=== PATIENT | male | born 1980 | race Caucasian/White ===

== ENCOUNTER 2023-07-11 13:13 | Emergency (ER) | payer OTHER, MEDICARE, SELFPAY ==
[2023-07-11 13:31] VITALS: BP 130/113
[2023-07-11 13:41] LABS: % Basophils 0.8 % (0-2); % Eosinophils 2.1 % (0-6); % Immature Granulocytes 0.5 % (0-0.5); % Lymphocytes 28.9 % (20.5-51.1); % Monocytes 8.2 % (1.7-9.3); % Neutrophils 59.5 % (42.2-75.2); Absolute Basophils 0.1 10^3/uL (0-0.2); Absolute Eosinophils 0.2 10^3/uL (0-0.7); Absolute Lymphocytes 2.2 10^3/uL (1.2-3.4); Absolute Monocytes 0.6 10^3/uL (0.1-0.6); Absolute Neutrophils 4.4 10^3/uL (1.4-6.5); Hematocrit 44.1 % (39.0-52.0); Hemoglobin 15.4 g/dL (13.0-18.0); Mean Corp Hgb Conc. 34.9 g/dL (33.0-37.0); Mean Corpuscular Volume 88.9 fL (80.0-94.0); Nucleated Red Blood Cells % 0 % (-); Platelet Count 235 10^3/uL (130-400); Red Blood Cell Count 4.96 10^6/uL (4.70-6.10); Red Cell Dist. Width 12.6 % (11.5-14.5); White Blood Cell Count 7.5 10^3/uL (4.8-10.8)
[2023-07-11 14:00] LABS: ALT (SGPT) 40 U/L (0-50); AST (SGOT) 33 U/L (17-59); Albumin 4.5 g/dl (3.5-5.0); Alkaline Phosphatase 112 U/L (38-126); Blood Urea Nitrogen 12 mg/dl (9-20); Calcium 9.6 mg/dl (8.4-10.2); Carbon Dioxide 24 mmol/L (22-30); Chloride 106 mmol/L (98-107); Glucose 117 mg/dl (70-99); Potassium 4.2 mmol/L (3.5-5.1); Sodium 141 mmol/L (135-145); Total Bilirubin 0.7 mg/dl (0.2-1.3); Total Protein 7.5 g/dl (6.3-8.2); eGFR > 60.00
--- NOTE | 2023-07-11 14:39 | ED.GENMED ---
History of Present Illness
General
Chief Complaint: Breathing Problem
Time Seen by Provider: 07/11/23 14:21
Travel History
Have you had any contact with someone who has COVID-19?: No
Do you have any symptoms of coronavirus? Fever > 100 degrees, chills, cough, shortness of breath, sore throat, loss of taste or smell, muscle aches, or headache?: No
History of Present Illness
History of Present Illness:
43-year-old male presents the emergency department for evaluation of low pulse ox. He states he has no symptoms but noticed that his pulse ox on a portable pulse oximeter was briefly in the low 90s before improving to 99%. Specifically denies any
chest pain or shortness of breath. When questioned why he put the pulse ox on his finger his significant other informs me that he does this every day for extended periods of time. Patient does admit to significant health-related anxiety. No
recent fevers.
Past History
Past History
ED Past Medical History: Psychiatric (Anxiety); Negative Asthma, HTN, Hypercholesterolemia or NIDDM
ED Past Surgical History: Other ([place] teeth)
Social History
Tobacco: Former smoker
Alcohol: None
Drug: None
Personal:
Living: with family
Employment: Employed
Family History
Family History: Other (Noncontributory)
Review of Systems
Review of Systems
Allergies reviewed?: Yes
All Other Systems: ROS reviewed and negative except as documented in HPI and ROS
Phy Exam
Physical Exam
Physical Exam:
GEN: Well appearing, NAD, WDWN
HEENT: Oral mucosa moist, no scleral icterus
Cardiac: Regular rate and rhythm, no murmur
Lung: No respiratory distress, no tachypnea, lungs clear to auscultation bilaterally
MSK: No gross deformity or injuries
Skin: Good color, no pallor or jaundice, no rashes
Neuro: AO x3, moves all extremities freely
Psych: Calm, cooperative
Course
Orders/Labs/Results
Orders:
Orders
07/11/23 13:36
CMP [Comprehensive Metabolic Panel] Urgent
Complete Blood Count/With Diff Urgent
Abnormal Lab Results
07/11/23
13:36
Glucose 117 H mg/dl
(70-99)
07/11/23 13:36
07/11/23 13:36
Vital Signs
Initial and Last Documented VS:
Initial Vital Signs
Temp Pulse Resp BP Pulse Ox
98.0 F 70 18 130/113 98
07/11/23 13:31 07/11/23 13:31 07/11/23 13:31 07/11/23 13:31 07/11/23 13:31
Last Documented Vital Signs
Temp Pulse Resp BP Pulse Ox
98.0 F 77 18 130/113 97
07/11/23 13:31 07/11/23 14:25 07/11/23 14:25 07/11/23 13:31 07/11/23 14:25
MDM/Problems Addressed
MDM/Problems Addressed:
Patient strongly encouraged to discontinue to Pulsoxymeter in the absence of any symptoms.
*Critical Care Note
Total Time (30-74mins, 75-104mins- exclusive of procedures): Not Applicable
ED Attending Note
-
Portions of this chart may have been created with voice recognition software.� Occasional wrong word or��sound alike� substitutions may have occurred due to the inherent limitations of voice recognition software.
Discharge Plan
Departure
Patient Disposition: Home (Routine Discharge)
Date of Disposition: 07/11/23
Time of Disposition: 14:39
Patient with high blood pressure during this ER visit?: Yes
Discharge Problem:
Anxiety about health
Prescriptions:
No Action
citalopram 20 MG tablet
20 mg PO HS
clozapine 100 MG tablet
150 mg PO HS
clomipramine 25 MG capsule
25 mg PO HS
mupirocin calcium 15 GM cream
15 gm TP TID Qty: 15 0RF
valacyclovir 1,000 MG tablet
1,000 mg PO TID Qty: 21 0RF
prednisone 20 MG tablet
80 mg PO DAILY Qty: 28 0RF
doxycycline hyclate 100 MG capsule
100 mg PO Q12 Qty: 42 0RF
Activity Restrictions/Additional Instructions:
DO NOT USE A PULSE OXIMETER IF YOU HAVE NO SYMPTOMS OF SHORTNESS OF BREATH, HEART PALPITATIONS OR CHEST PAIN
Interventions
Interventions:
*Risk Screen - Suicide Last Done: 07/11/23 14:26
*General Assessment Last Done: 07/11/23 13:26
*Neglect/Abuse Screening Last Done: 07/11/23 14:26
ED- Fall Risk Assessment Last Done: 07/11/23 14:49
*ED COVID-19 Vaccine History Last Done: 07/11/23 13:26
*Nursing Disposition Last Done: 07/11/23 14:49
ED- Cardiac Assessment Last Done: 07/11/23 14:25
ED- Pulmonary Assessment Last Done: 07/11/23 14:25
Discharge Date and Time
Discharge Date/Time: 07/11/23 14:50
== END 2023-07-11 14:50 | disposition home or self-care (01) ==
LOC: EMR 13:13
PROVIDERS: Emergency Medicine; EMERGENCY PHYSICIAN Emergency Medicine; FAMILY PHYSICIAN Family Medicine
DX: F41.9 Anxiety disorder, unspecified (principal); R03.0 Elevated blood-pressure reading, without diagnosis of hypertension; Z87.891 Personal history of nicotine dependence
CPT/HCPCS: 99283; 80053; 85025

== ENCOUNTER 2023-10-08 16:36 | Emergency (ER) | payer OTHER, MEDICARE, SELFPAY ==
[2023-10-08 16:38] VITALS: BP 136/82
--- NOTE | 2023-10-08 18:07 | ED.GENMED ---
History of Present Illness
General
Chief Complaint: Abnormal Lab Value
Source: patient
Time Seen by Provider: 10/08/23 17:54
Travel History
Have you had any contact with someone who has COVID-19?: No
Do you have any symptoms of coronavirus? Fever > 100 degrees, chills, cough, shortness of breath, sore throat, loss of taste or smell, muscle aches, or headache?: No
History of Present Illness
History of Present Illness:
43-year-old male with past medical history of fatty liver disease, anxiety, bipolar disorder, OCD, schizoaffective disorder presenting to the emergency department for evaluation after he had outpatient labs through his GI which were noted to have
mildly low alpha-2 macro globulins. Patient was concerned about this result and wanted to make sure everything was okay. Patient notes that he is no symptoms at this time including no abdominal pain, nausea, vomiting, bowel changes, urinary
symptoms or change in oral intake.
Past History
Past History
ED Past Medical History: Psychiatric (Anxiety); Negative Asthma, HTN, Hypercholesterolemia or NIDDM
ED Past Surgical History: Other ([place] teeth)
Social History
Tobacco: Former smoker
Alcohol: None
Drug: None
Personal:
Living: with family
Employment: Employed
Family History
Family History: Other (Noncontributory)
Review of Systems
Review of Systems
All Other Systems: ROS reviewed and negative except as documented in HPI and ROS
Phy Exam
Physical Exam
Physical Exam:
GENERAL: Alert , in no apparent distress
EYE: conjunctiva clear
Head: Normocephalic atraumatic
NECK: Supple,
ENT: mmm.
LUNGS: no acute respiratory distress
NEUROLOGICAL: Alert and oriented
SKIN: Warm and dry, skin intact.
MUSCULOSKELETAL: well perfused.
PSYCH: Normal and appropriate interaction.
Course
Vital Signs
Initial and Last Documented VS:
Initial Vital Signs
Temp Pulse Resp BP Pulse Ox
98.0 F 66 20 136/82 99
10/08/23 16:38 10/08/23 16:38 10/08/23 16:38 10/08/23 16:38 10/08/23 16:38
Last Documented Vital Signs
Temp Pulse Resp BP Pulse Ox
98.0 F 72 18 134/78 97
10/08/23 16:38 10/08/23 18:20 10/08/23 18:20 10/08/23 18:20 10/08/23 18:20
MDM/Problems Addressed
MDM/Problems Addressed:
43-year-old male present emergency department for evaluation of slightly abnormal lab work that was done as an outpatient by his GI physician. His alpha-2 macro globulins were slightly low on the normal range. I expressed to the patient that this
is a nonemergent and that he needs to follow-up with his GI physician to discuss these results. Overall patient is asymptomatic and does not require any further emergency room care and to be safe at home.
*Pulse Oximetry
Patient hypoxic: no
*Critical Care Note
Total Time (30-74mins, 75-104mins- exclusive of procedures): Not Applicable
ED Attending Note
-
Portions of this chart may have been created with voice recognition software.� Occasional wrong word or��sound alike� substitutions may have occurred due to the inherent limitations of voice recognition software.
Discharge Plan
Departure
Patient Disposition: Home (Routine Discharge)
Date of Disposition: 10/08/23
Time of Disposition: 18:07
Patient with high blood pressure during this ER visit?: No
Discharge Problem:
Fatty liver
Prescriptions:
No Action
citalopram 20 MG tablet
20 mg PO HS
clozapine 100 MG tablet
150 mg PO HS
clomipramine 25 MG capsule
25 mg PO HS
mupirocin calcium 15 GM cream
15 gm TP TID Qty: 15 0RF
valacyclovir 1,000 MG tablet
1,000 mg PO TID Qty: 21 0RF
prednisone 20 MG tablet
80 mg PO DAILY Qty: 28 0RF
doxycycline hyclate 100 MG capsule
100 mg PO Q12 Qty: 42 0RF
Interventions
Interventions:
*Risk Screen - Suicide Last Done: 10/08/23 18:09
*General Assessment Last Done: 10/08/23 18:09
*Neglect/Abuse Screening Last Done: 10/08/23 18:09
ED- Fall Risk Assessment Last Done: 10/08/23 18:09
*ED COVID-19 Vaccine History Last Done: 10/08/23 18:09
*Nursing Disposition Last Done: 10/08/23 18:20
Discharge Date and Time
Discharge Date/Time: 10/08/23 18:20
Print Language: WOLOF
--- NOTE | 2023-10-08 18:15 | EDRN ---
Reviewed discharge instructions with patient. Verbalized understanding.
[2023-10-08 18:20] VITALS: BP 134/78
== END 2023-10-08 18:20 | disposition home or self-care (01) ==
LOC: EMR 16:36
PROVIDERS: EMERGENCY PHYSICIAN Emergency Medicine; FAMILY PHYSICIAN Family Medicine
DX: R79.89 Other specified abnormal findings of blood chemistry (principal); K76.0 Fatty (change of) liver, not elsewhere classified; F31.9 Bipolar disorder, unspecified; F42.9 Obsessive-compulsive disorder, unspecified; F25.9 Schizoaffective disorder, unspecified; F41.9 Anxiety disorder, unspecified; Z87.891 Personal history of nicotine dependence
CPT/HCPCS: 99282

== ENCOUNTER 2023-12-01 17:26 | Emergency (ER) | payer OTHER, MEDICARE, SELFPAY ==
[2023-12-01 17:27] VITALS: BMI 34.3
[2023-12-01 17:31] VITALS: BP 149/82
[2023-12-01 18:01] VITALS: BP 124/83
--- NOTE | 2023-12-01 18:15 | ED.GENMED ---
History of Present Illness
General
Chief Complaint: Heart Rate Problem
Source: patient
Exam Limitations: none
Time Seen by Provider: 12/01/23 17:59
Travel History
Have you had any contact with someone who has COVID-19?: No
Do you have any symptoms of coronavirus? Fever > 100 degrees, chills, cough, shortness of breath, sore throat, loss of taste or smell, muscle aches, or headache?: No
History of Present Illness
History of Present Illness:
This is a 43 year old male that comes in because his apple watch said his heart rate was 46 around 12 noon. States that he felt fine and was not dizzy or nauseate and he didn't even know this until he was reviewing his watch. Denies any fever,
chills, chest pain, SOB, abd pain, nausea, vomiting, diarrhea, headache, dizziness, urinary burning.
Past History
Past History
ED Past Medical History: Psychiatric (Anxiety, Bipolar OCD, Schizo affective ) and Other (Migraines, Lyme, Duke's Palsy, Fatty liver); Negative Asthma, HTN, Hypercholesterolemia or NIDDM
ED Past Surgical History: Other ([place] teeth)
Social History
Tobacco: Former smoker
Alcohol: None
Drug: None
Personal:
Living: with family
Employment: Employed
Family History
Family History: Other (Noncontributory)
Review of Systems
Review of Systems
All Other Systems: ROS reviewed and negative except as documented in HPI and ROS
Constitutional: Reports no symptoms; Denies fever or chills
EENT: Reports no symptoms
Respiratory: Reports no symptoms; Denies cough or trouble breathing
Cardiac: Reports other (Lower heart rate); Denies chest pain
ABD/GI: Reports no symptoms; Denies abdominal pain, nausea, vomiting or diarrhea
: Reports no symptoms; Denies dysuria, frequency or urgency
Musculoskeletal: Reports no symptoms
Skin: Reports no symptoms
Neurological: Reports no symptoms; Denies dizzy or headache
Psychiatric: Reports no symptoms
Phy Exam
General Physical Exam
General Presentation: well appearing and no apparent distress
General age: appears stated age
General Skin: warm and dry
General Habitus: normal
General Mental: alert
General Hydration: appears well hydrated
ENT Exam
ENT Exam: TM's normal, pharynx normal and neck supple
Eye Exam
Eye Exam: EOMI
Cardiovascular Exam
Cardiovascular Exam: regular rate/rhythm, no edema, no murmur and normal peripheral pulses
Pulmonary Exam
Pulmonary Exam: lungs clear, no respiratory distress, no rales, chest non tender, no crackles, no rhonchi, no wheezing and no cough
Gastrointestinal Exam
Gastrointestinal Exam: normal bowel sounds, non tender, soft, no organomegaly, no pulsatile mass and non distended
Musculoskeletal Exam
Musculoskeletal Exam: full ROM and no edema
Skin Exam
Skin Exam: normal color, warm/dry, no rash and no petechia
Psychiatric Exam
Psychiatric Exam: normal mood/affect
Course
Orders/Labs/Results
Orders:
Orders
12/01/23 18:24
Electrocardiogram (*1) Urgent
Reason for Study: Bradycardia / Tachycardia
EKG- Treatment ONCE
Vital Signs
Initial and Last Documented VS:
Initial Vital Signs
Temp Pulse Resp BP Pulse Ox
98.0 F 94 16 149/82 98
12/01/23 17:31 12/01/23 17:31 12/01/23 17:31 12/01/23 17:31 12/01/23 17:31
Last Documented Vital Signs
Temp Pulse Resp BP Pulse Ox
98.0 F 91 12 124/83 99
12/01/23 17:31 12/01/23 18:01 12/01/23 18:01 12/01/23 18:01 12/01/23 18:10
MDM/Problems Addressed
Differential Diagnosis Includes:
watch unable to strip picker heart rate
MDM/Problems Addressed:
This is a 43 year old male that comes in stating that his apple watch said at 12 noon his heart rate was 46. Patient state that he did not know this until he reviewed his watch. States that he was not dizzy or nauseated and had no chest pain.
EXplained to patient that his watch is just like are monitor sometimes there is not a good connection and they are inaccurate. Heart rate on the monitor is 88 NSR. Encouraged patient to increase his water intake and if he had any chest pain or feels
that his heart is abnormal and he is dizzy or nauseated to return to the ER. Patient to follow up with the PCP.
Chronic conditions affecting care:
NA
Acute Exacerbation and/or Progression of Chronic Illness:
NA
*Pulse Oximetry
Patient hypoxic: no
*EKG
Interpreted by ED Provider?: Yes
Heart Rate: 82
Rate: normal
Rhythm: sinus
[place]: normal axis
Interval: long QT
QRS Pattern: normal QRS
Ischemia: no ischemia
*[employer] Work[employer] Interpretation
Rate: normal
Heart Rate: 88
Rhythm: sinus
*Critical Care Note
Total Time (30-74mins, 75-104mins- exclusive of procedures): Not Applicable
ED Attending Note
-
Portions of this chart may have been created with voice recognition software.� Occasional wrong word or��sound alike� substitutions may have occurred due to the inherent limitations of voice recognition software.
Discharge Plan
Departure
Patient Disposition: Home (Routine Discharge)
Date of Disposition: 12/01/23
Time of Disposition: 18:25
Patient with high blood pressure during this ER visit?: No
Condition: Good
Covid-19: Not Applicable
Discharge Problem:
heart rate check
Instructions: How to Check Your Pulse
Prescriptions:
No Action
citalopram 20 MG tablet
20 mg PO HS
clozapine 100 MG tablet
150 mg PO HS
clomipramine 25 MG capsule
25 mg PO HS
mupirocin calcium 15 GM cream
15 gm TP TID Qty: 15 0RF
valacyclovir 1,000 MG tablet
1,000 mg PO TID Qty: 21 0RF
prednisone 20 MG tablet
80 mg PO DAILY Qty: 28 0RF
doxycycline hyclate 100 MG capsule
100 mg PO Q12 Qty: 42 0RF
Referrals:
Thang Cooper MD [Family Provider] - Call in 1-3 days for appt
Activity Restrictions/Additional Instructions:
As discussed, your watch may have been unable to strip picker your heart rate. Its just like our monitors, if they are not in place properly they will not have an accurate reading. Please increase your water intake to 8-8oz glasses daily. Follow up with
the family doctor for recheck. IF YOU HAVE DIZZINESS, CHEST PAIN, OR YOU HAVE ANY OTHER CONCERNS PLEASE RETURN TO THE EMERGENCY ROOM.
Interventions
Interventions:
*Risk Screen - Suicide Last Done: 12/01/23 17:31
*General Assessment Last Done: 12/01/23 17:31
*Neglect/Abuse Screening Last Done: 12/01/23 17:31
ED- Fall Risk Assessment Last Done: 12/01/23 18:10
*Nursing Disposition Last Done: 12/01/23 18:32
ED- Cardiac Assessment Last Done: 12/01/23 18:10
ED- Pulmonary Assessment Last Done: 12/01/23 18:10
Discharge Date and Time
Print Language: ETHIOPIAN
== END 2023-12-01 18:32 | disposition home or self-care (01) ==
LOC: EMR 17:26
PROVIDERS: EMERGENCY PHYSICIAN Emergency Medicine; FAMILY PHYSICIAN Family Medicine
DX: R00.9 Unspecified abnormalities of heart beat (principal); F31.9 Bipolar disorder, unspecified; F42.9 Obsessive-compulsive disorder, unspecified; F25.9 Schizoaffective disorder, unspecified; F41.9 Anxiety disorder, unspecified; G43.909 Migraine, unspecified, not intractable, without status migrainosus; K76.0 Fatty (change of) liver, not elsewhere classified; Z87.891 Personal history of nicotine dependence
CPT/HCPCS: 99283; 93005

== ENCOUNTER 2024-05-13 19:50 | Emergency (ER) | payer OTHER, MEDICARE, SELFPAY ==
[2024-05-13 19:52] VITALS: BP 142/85
--- NOTE | 2024-05-13 20:19 | ED.GENMED ---
History of Present Illness
General
Chief Complaint: Nasal Problem
Source: patient
Exam Limitations: none
Time Seen by Provider: 05/13/24 20:06
History of Present Illness
History of Present Illness:
This is a 43 year old male that comes in with c/o clear nasal drip. States that he sometimes gets sinusitis and he tonight he had some clear nasal discharge form his nose. States that he was googling and he was worried about spinal fluid. Patient
has not had any head trauma. Denies any fever, chills, chest pain, SOB, abd pain, nausea, vomiting, diarrhea, headache, dizziness, urinary burning.
Past History
Past History
ED Past Medical History: Psychiatric (Anxiety, Bipolar OCD, Schizo affective ) and Other (Migraines, Lyme, Duke's Palsy, Fatty liver); Negative Asthma, HTN, Hypercholesterolemia or NIDDM
ED Past Surgical History: Other ([place] teeth)
Social History
Tobacco: Former smoker
Alcohol: None
Drug: None
Personal:
Living: with family
Employment: Employed
Family History
Family History: Other (Noncontributory)
Review of Systems
Review of Systems
All Other Systems: ROS reviewed and negative except as documented in HPI and ROS
Constitutional: Reports no symptoms; Denies fever or chills
EENT: Reports other (Nasal discharge)
Respiratory: Reports no symptoms; Denies cough or trouble breathing
Cardiac: Reports no symptoms; Denies chest pain
ABD/GI: Reports no symptoms; Denies abdominal pain, nausea, vomiting or diarrhea
: Reports no symptoms; Denies dysuria, frequency or urgency
Musculoskeletal: Reports no symptoms
Skin: Reports no symptoms
Neurological: Reports no symptoms; Denies dizzy or headache
Psychiatric: Reports no symptoms
Phy Exam
General Physical Exam
General Presentation: well appearing and no apparent distress
General age: appears stated age
General Skin: warm and dry
General Habitus: normal
General Mental: alert
General Hydration: appears well hydrated
ENT Exam
ENT Exam: TM's normal, pharynx normal, neck supple and other (Erythema of the nasal passages. negative for any discharge)
Eye Exam
Eye Exam: EOMI
Cardiovascular Exam
Cardiovascular Exam: regular rate/rhythm
Pulmonary Exam
Pulmonary Exam: lungs clear, no respiratory distress, no rales, chest non tender, no crackles, no rhonchi, no wheezing and no cough
Musculoskeletal Exam
Musculoskeletal Exam: full ROM
Skin Exam
Skin Exam: normal color, warm/dry, no rash and no petechia
Psychiatric Exam
Psychiatric Exam: normal mood/affect
Course
Vital Signs
Initial and Last Documented VS:
Initial Vital Signs
Temp Pulse Resp BP
98.0 F 71 18 142/85
05/13/24 19:52 05/13/24 19:52 05/13/24 19:52 05/13/24 19:52
Last Documented Vital Signs
Temp Pulse Resp BP
98.0 F 71 18 142/85
05/13/24 19:52 05/13/24 19:52 05/13/24 19:52 05/13/24 19:52
MDM/Problems Addressed
Differential Diagnosis Includes:
seasonal allergies. Cold symptoms
MDM/Problems Addressed:
This is a 43 year old male that comes in with c/o nasal discharge.
Explained to patient that this is most likely seasonal allergies or you are starting with a cold. Explained that he has had no trauma to his head and he doesn't have a headache that would account for any spinal fluid. Patient to return with any
concerns.
Chronic conditions affecting care: Psychiatric illness
Acute Exacerbation and/or Progression of Chronic Illness: Psychiatric illness
*Pulse Oximetry
Patient hypoxic: no
*EKG
Interpreted by ED Provider?: NA
Rate: EKG- N/A
*Project Manager [employer] Interpretation
Rate: [employer]- N/A
*Critical Care Note
Total Time (30-74mins, 75-104mins- exclusive of procedures): Not Applicable
ED Attending Note
-
Portions of this chart may have been created with voice recognition software.� Occasional wrong word or��sound alike� substitutions may have occurred due to the inherent limitations of voice recognition software.
Discharge Plan
Departure
Patient Disposition: Home (Routine Discharge)
Date of Disposition: 05/13/24
Time of Disposition: 20:25
Patient with high blood pressure during this ER visit?: Yes
Condition: Good
Covid-19: Not Applicable
Discharge Problem:
Discharge from nose
Instructions: Cough, runny nose, and the common cold, BLOOD PRESSURE
Prescriptions:
No Action
citalopram 20 MG tablet
20 mg PO HS
clozapine 100 MG tablet
150 mg PO HS
clomipramine 25 MG capsule
25 mg PO HS
mupirocin calcium 15 GM cream
15 gm TP TID Qty: 15 0RF
valacyclovir 1,000 MG tablet
1,000 mg PO TID Qty: 21 0RF
prednisone 20 MG tablet
80 mg PO DAILY Qty: 28 0RF
doxycycline hyclate 100 MG capsule
100 mg PO Q12 Qty: 42 0RF
Activity Restrictions/Additional Instructions:
As discussed, this may just be the start of a cold or seasonal allergies. Please just blow your nose. Increase your water intake and follow up with the family doctor. IF YOU HAVE ANY OTHER CONCERNS PLEASE RETURN TO THE EMERGENCY ROOM.
Interventions
Interventions:
*Risk Screen - Suicide Last Done: 05/13/24 19:52
*General Assessment Last Done: 05/13/24 19:52
*Neglect/Abuse Screening Last Done: 05/13/24 19:52
*ED COVID-19 Vaccine History Last Done: 05/13/24 19:52
Discharge Date and Time
Print Language: HEBREW
[2024-05-13 20:41] VITALS: BP 156/72
== END 2024-05-13 20:42 | disposition home or self-care (01) ==
LOC: EMR 19:50
PROVIDERS: EMERGENCY PHYSICIAN Emergency Medicine; FAMILY PHYSICIAN Family Medicine
DX: R09.89 Other specified symptoms and signs involving the circulatory and respiratory systems (principal); F31.9 Bipolar disorder, unspecified; F41.9 Anxiety disorder, unspecified; F42.9 Obsessive-compulsive disorder, unspecified; F25.9 Schizoaffective disorder, unspecified; K76.0 Fatty (change of) liver, not elsewhere classified; Z87.891 Personal history of nicotine dependence; G43.909 Migraine, unspecified, not intractable, without status migrainosus
CPT/HCPCS: 99282

== ENCOUNTER 2024-08-25 15:23 | Emergency (ER) | payer MEDICARE, SELFPAY ==
[2024-08-25 15:37] VITALS: BP 118/79
[2024-08-25 16:07] LABS: % Basophils 1.1 % (0-2); % Eosinophils 1.6 % (0-6); % Immature Granulocytes 0.6 % (0-0.5); % Lymphocytes 34.7 % (20.5-51.1); % Monocytes 8.8 % (1.7-9.3); % Neutrophils 53.2 % (42.2-75.2); Absolute Basophils 0.1 10^3/uL (0-0.2); Absolute Eosinophils 0.1 10^3/uL (0-0.7); Absolute Immature Granulocytes 0.1 10^3/uL (0-0.05); Absolute Lymphocytes 2.9 10^3/uL (1.2-3.4); Absolute Monocytes 0.7 10^3/uL (0.1-0.6); Absolute Neutrophils 4.4 10^3/uL (1.4-6.5); Hematocrit 45.3 % (39.0-52.0); Hemoglobin 15.5 g/dL (13.0-18.0); Mean Corp Hgb Conc. 34.2 g/dL (33.0-37.0); Mean Corpuscular Hgb 30.9 pg (27.0-31.0); Mean Corpuscular Volume 90.2 fL (80.0-94.0); Mean Platelet Volume 9.3 fL (7.4-10.4); Nucleated Red Blood Cells % 0 % (-); Platelet Count 240 10^3/uL (130-400); Red Blood Cell Count 5.02 10^6/uL (4.70-6.10); Red Cell Dist. Width 12.6 % (11.5-14.5); White Blood Cell Count 8.3 10^3/uL (4.8-10.8)
[2024-08-25 16:25] LABS: ALT (SGPT) 55 U/L (0-50); AST (SGOT) 34 U/L (17-59); Albumin 5.3 g/dl (3.5-5.0); Alkaline Phosphatase 111 U/L (38-126); Blood Urea Nitrogen 12 mg/dl (9-20); Carbon Dioxide 19 mmol/L (22-30); Chloride 106 mmol/L (98-107); Glucose 105 mg/dl (70-99); Potassium 4.6 mmol/L (3.5-5.1); Sodium 139 mmol/L (135-145); Total Bilirubin 0.9 mg/dl (0.2-1.3); Total Protein 8.2 g/dl (6.3-8.2); eGFR > 60.00
[2024-08-25 18:49] LABS: Lipase 214 U/L (23-300)
--- NOTE | 2024-08-25 18:50 | ED.GENMED ---
History of Present Illness
General
Chief Complaint: Bowel Problem
Source: patient
Exam Limitations: none
Time Seen by Provider: 08/25/24 18:07
Nursing documentation reviewed up to this point in time: agreed with
History of Present Illness
History of Present Illness:
44-year-old male past medical history of fatty liver presenting to the emergency department today with concerns of a light brown stool appearance over the past few days denies any pain fevers or any additional symptoms otherwise. He claims that
does happen occasionally. Has been drinking more coffee than usual.
Past History
Past History
ED Past Medical History: Psychiatric (Anxiety, Bipolar OCD, Schizo affective ) and Other (Migraines, Lyme, Duke's Palsy, Fatty liver); Negative Asthma, HTN, Hypercholesterolemia or NIDDM
ED Past Surgical History: Other ([place] teeth)
Social History
Tobacco: Former smoker
Alcohol: None
Drug: None
Personal:
Living: with family
Employment: Employed
Family History
Family History: Other (Noncontributory)
Review of Systems
Review of Systems
Allergies reviewed?: Yes
All Other Systems: ROS reviewed and negative except as documented in HPI and ROS
Phy Exam
Physical Exam
Physical Exam:
GENERAL: Alert , in no apparent distress
EYE: pupils equal and reactive
NECK: Supple, no significant adenopathy.
ENT: o/p clr, mmm.
CARDIAC: Regular rate and rhythm .
LUNGS: Clear breath sounds bilaterally, no acute respiratory distress, no wheezes/rales/rhonchi
ABDOMEN: Soft, without focal tenderness, no r/g, no cvat
NEUROLOGICAL: Alert and oriented, no focal neuro deficits
SKIN: Warm and dry, skin intact.
MUSCULOSKELETAL: No edema, well perfused.
PSYCH: Normal and appropriate interaction.
Course
Orders/Labs/Results
Orders:
Orders
08/25/24 15:44
Complete Blood Count/With Diff Urgent
Comprehensive Metabolic Panel Urgent
Lipase Urgent
Comment: ADD ON
08/25/24 17:59
Add On- LAB Urgent
Comments:: sst in lab
Tests Added?: Lipase
Abnormal Lab Results
08/25/24
15:44
Abs Immat Gran (auto) 0.1 H 10^3/uL
(0-0.05)
Absolute Monos (auto) 0.7 H 10^3/uL
(0.1-0.6)
Immature Gran % 0.6 H %
(0-0.5)
Carbon Dioxide 19 L mmol/L
(22-30)
Glucose 105 H mg/dl
(70-99)
ALT 55 H U/L
(0-50)
Albumin 5.3 H g/dl
(3.5-5.0)
08/25/24 15:44
08/25/24 15:44
Vital Signs
Initial and Last Documented VS:
Initial Vital Signs
Temp Pulse Resp BP Pulse Ox
98 F 70 16 118/79 97
08/25/24 15:37 08/25/24 15:37 08/25/24 15:37 08/25/24 15:37 08/25/24 15:37
Last Documented Vital Signs
Temp Pulse Resp BP Pulse Ox
98 F 70 16 118/79 97
08/25/24 15:37 08/25/24 15:37 08/25/24 15:37 08/25/24 15:37 08/25/24 15:37
MDM/Problems Addressed
MDM/Problems Addressed:
44-year-old male presenting to the ER with concerns of his stool appearing light brown for the last few days. Denies additional symptoms vital signs normal labs without emergent findings. No evidence of any emergent pathology at this point advised
for outpatient follow-up.
*Critical Care Note
Total Time (30-74mins, 75-104mins- exclusive of procedures): Not Applicable
ED Attending Note
-
Portions of this chart may have been created with voice recognition software.� Occasional wrong word or��sound alike� substitutions may have occurred due to the inherent limitations of voice recognition software.
Discharge Plan
Departure
Patient Disposition: Home (Routine Discharge)
Date of Disposition: 08/25/24
Time of Disposition: 18:50
Patient with high blood pressure during this ER visit?: No
Condition: Good
Covid-19: Not Applicable
Discharge Problem:
Change in bowel movement
Prescriptions:
No Action
citalopram 20 MG tablet
20 mg PO HS
clozapine 100 MG tablet
150 mg PO HS
clomipramine 25 MG capsule
25 mg PO HS
mupirocin calcium 15 GM cream
15 gm TP TID Qty: 15 0RF
valacyclovir 1,000 MG tablet
1,000 mg PO TID Qty: 21 0RF
prednisone 20 MG tablet
80 mg PO DAILY Qty: 28 0RF
doxycycline hyclate 100 MG capsule
100 mg PO Q12 Qty: 42 0RF
Activity Restrictions/Additional Instructions:
You came to the emergency department today with concerns of change in your stool. Here you had a reassuring assessment. Please follow closely with your primary care doctor and GI doctor for any ongoing issues. Return for any worsening, new or
concerning symptoms.
Interventions
Interventions:
*Risk Screen - Suicide Last Done: 08/25/24 15:37
*Neglect/Abuse Screening Last Done: 08/25/24 15:37
TW-Qqhjib-Hjcrotigmm Assessment Last Done: 08/25/24 16:40
Discharge Date and Time
Print Language: KYRGYZ
[2024-08-25 19:00] VITALS: BP 156/100
== END 2024-08-25 19:11 | disposition home or self-care (01) ==
LOC: EMR 15:23
PROVIDERS: Emergency Medicine; EMERGENCY PHYSICIAN Emergency Medicine
DX: R19.4 Change in bowel habit (principal); Z87.891 Personal history of nicotine dependence
CPT/HCPCS: 99283; 80053; 83690; 85025

== ENCOUNTER 2025-05-11 13:16 | Emergency (ER) | payer MEDICARE, OTHER, SELFPAY ==
[2025-05-11 13:23] VITALS: BP 145/92
[2025-05-11 13:43] LABS: Hematocrit 44.8 % (39.0-52.0); Hemoglobin 15.6 g/dL (13.0-18.0); Mean Corp Hgb Conc. 34.8 g/dL (33.0-37.0); Mean Corpuscular Volume 88.0 fL (80.0-94.0); Nucleated Red Blood Cells % 0 % (-); Platelet Count 251 10^3/uL (130-400); Red Cell Dist. Width 12.3 % (11.5-14.5)
[2025-05-11 13:53] LABS: ALT (SGPT) 31 U/L (0-50); AST (SGOT) 25 U/L (17-59); Albumin 4.9 g/dl (3.5-5.0); Alkaline Phosphatase 117 U/L (38-126); Blood Urea Nitrogen 10 mg/dl (9-20); Calcium 9.7 mg/dl (8.4-10.2); Carbon Dioxide 24 mmol/L (22-30); Chloride 109 mmol/L (98-107); Glucose 113 mg/dl (70-99); Potassium 4.3 mmol/L (3.5-5.1); Sodium 140 mmol/L (135-145); Total Protein 8.2 g/dl (6.3-8.2); eGFR > 60.00
[2025-05-11 14:05] LABS: Troponin I < 0.012 ng/ml
[2025-05-11 17:00] VITALS: BP 118/69
--- NOTE | 2025-05-11 18:08 | ED.GENMED ---
History of Present Illness
General
Chief Complaint: Heart Rate Problem
Time Seen by Provider: 05/11/25 17:57
History of Present Illness
History of Present Illness:
44-year-old male presents to the emergency department for evaluation of an abnormal Apple Watch reading. He denies any symptoms at the time, simply states he wanted to check his EKG 'just because. He noted an abnormality thus came to the emergency
department. He feels well with no complaints. He has a prior history of long QT however this has been followed up by cardiology and has not been a consistent EKG finding
Past History
Past History
ED Past Medical History: Psychiatric (Anxiety, Bipolar OCD, Schizo affective ) and Other (Migraines, Lyme, Duke's Palsy, Fatty liver); Negative Asthma, HTN, Hypercholesterolemia or NIDDM
ED Past Surgical History: Other ([place] teeth)
Social History
Tobacco: Former smoker
Alcohol: None
Drug: None
Personal:
Living: with family
Employment: Employed
Family History
Family History: Other (Noncontributory)
Review of Systems
Review of Systems
Allergies reviewed?: Yes
Phy Exam
Physical Exam
Physical Exam:
GEN: Well appearing, NAD, WDWN
HEENT: Oral mucosa moist, no scleral icterus
Cardiac: Regular rate and rhythm, no murmur
Lung: No respiratory distress, no tachypnea
MSK: No gross deformity or injuries
Skin: Good color, no pallor or jaundice, no rashes
Neuro: AO x3, moves all extremities freely
Psych: Calm, cooperative
Course
Orders/Labs/Results
Orders:
Orders
05/11/25 13:19
Electrocardiogram (*1) Urgent
Reason for Study: Chest Pain
EKG- Treatment ONCE
05/11/25 13:32
Complete Blood Count/With Diff Urgent
Comprehensive Metabolic Panel Urgent
Troponin I Urgent
Abnormal Lab Results
05/11/25
13:32
Absolute Monos (auto) 0.7 H 10^3/uL
(0.1-0.6)
Chloride 109 H mmol/L
(98-107)
Creatinine 0.6 L mg/dL
(0.7-1.3)
Glucose 113 H mg/dl
(70-99)
05/11/25 13:32
05/11/25 13:32
Vital Signs
Initial and Last Documented VS:
Initial Vital Signs
Temp Pulse Resp BP Pulse Ox
97.9 F 84 20 145/92 97
05/11/25 13:23 05/11/25 13:23 05/11/25 13:23 05/11/25 13:23 05/11/25 13:23
Last Documented Vital Signs
Temp Pulse Resp BP Pulse Ox
98 F 71 16 118/69 99
05/11/25 17:00 05/11/25 17:00 05/11/25 17:00 05/11/25 17:00 05/11/25 18:11
MDM/Problems Addressed
MDM/Problems Addressed:
I reviewed the patient's Apple Watch ECG tracing which shows normal sinus rhythm with 1 small bit of motion artifact. There are no ST changes and no arrhythmias. Patient feels well and thus needs no further workup
Comment
Comment:
EKG independently interpreted by me shows normal sinus rhythm at a rate of 86 with a slightly prolonged QT interval
*Pulse Oximetry
SaO2: 99
Oxygen Mode of Delivery: Room air
Patient hypoxic: no
*Critical Care Note
Total Time (30-74mins, 75-104mins- exclusive of procedures): Not Applicable
ED Attending Note
-
Portions of this chart may have been created with voice recognition software.� Occasional wrong word or��sound alike� substitutions may have occurred due to the inherent limitations of voice recognition software.
Discharge Plan
Departure
Patient Disposition: Home (Routine Discharge)
Date of Disposition: 05/11/25
Time of Disposition: 18:10
Patient with high blood pressure during this ER visit?: No
Discharge Problem:
Feared complaint without diagnosis
Instructions: Palpitations (DC)
Prescriptions:
No Action
citalopram 20 MG tablet
20 mg PO HS
clozapine 100 MG tablet
150 mg PO HS
clomipramine 25 MG capsule
25 mg PO HS
mupirocin calcium 15 GM cream
15 gm TP TID Qty: 15 0RF
valacyclovir 1,000 MG tablet
1,000 mg PO TID Qty: 21 0RF
prednisone 20 MG tablet
80 mg PO DAILY Qty: 28 0RF
doxycycline hyclate 100 MG capsule
100 mg PO Q12 Qty: 42 0RF
Referrals:
Thang Cooper MD [Family Provider, Family Practice]
Activity Restrictions/Additional Instructions:
Do not check an EKG on your apple watch unless you have symptoms that concern you
Interventions
Interventions:
*Risk Screen - Suicide Last Done: 05/11/25 13:23
*General Assessment Last Done: 05/11/25 13:23
*Neglect/Abuse Screening Last Done: 05/11/25 18:32
*ED Influenza Vaccine History Last Done: 05/11/25 13:23
*Nursing Disposition Last Done: 05/11/25 18:32
ED- Cardiac Assessment Last Done: 05/11/25 18:10
ED- Pulmonary Assessment Last Done: 05/11/25 18:10
Discharge Date and Time
Discharge Date/Time: 05/11/25 18:32
Print Language: SPANISH
== END 2025-05-11 18:32 | disposition home or self-care (01) ==
LOC: EMR 13:16
PROVIDERS: Emergency Medicine; EMERGENCY PHYSICIAN Emergency Medicine; FAMILY PHYSICIAN Family Medicine
DX: Z71.1 Person with feared health complaint in whom no diagnosis is made (principal); F41.9 Anxiety disorder, unspecified; F31.9 Bipolar disorder, unspecified; F42.9 Obsessive-compulsive disorder, unspecified; F25.9 Schizoaffective disorder, unspecified; K76.0 Fatty (change of) liver, not elsewhere classified; Z87.891 Personal history of nicotine dependence
CPT/HCPCS: 99284; 80053; 84484; 85025; 93005